=== PATIENT | female | born 1960 | race Caucasian/White ===

== ENCOUNTER → 2019-04-11 | Outpatient (REF) | payer BC, OTHER ==
[2019-04-13 14:10] LABS: HPV HYBRID CAPTURE II Negative (Negative)
== END ==
LOC: M LAB REF 18:50
PROVIDERS: ATTEND Advanced Practice Midwife
DX: Z12.4 Encounter for screening for malignant neoplasm of cervix (principal); N88.8 Other specified noninflammatory disorders of cervix uteri
CPT/HCPCS: 87624; G0123

== ENCOUNTER → 2019-05-12 | Outpatient (CLI) | payer OTHER ==
--- NOTE | 2019-05-17 07:45 | SLEEPHOME ---
DATE OF PROCEDURE: 05/12/2019 ORDERED BY: Dr. Avtar Miles Diagnostic home sleep testing was performed due to concern for the obstructive sleep apnea syndrome. For testing, a nocturnal T3 respiratory monitoring device was used. Continuous record was made of pulse, oxygen saturation, airflow, chest and abdominal strain and body position. 10 hours and 59 minutes of data were reviewed. There were 5 hours and 41 minutes marked as time in bed. During the interval marked time in bed, there were 29 respiratory events identified of 10 seconds in duration or greater for a respiratory event index of 5.1. The events were primarily obstructive. Baseline pulse rate 63 beats per minute, pulse rate ranged 45-85. Baseline saturation 96%. Saturations fell to 91%. Testing was performed in both the supine and nonsupine positions. Respiratory events were more frequent in the supine posture. IMPRESSION: Abnormal home sleep testing with repetitive respiratory events and oxygen desaturations to 91% with a respiratory event index of 5.1 is consistent with the obstructive sleep apnea syndrome. RECOMMENDATIONS: Given the positional nature of the respiratory events identified, sleep position retraining for avoidance of the supine posture may be sufficient. Should the patient's symptoms persist, referral for formal sleep evaluation should be considered.
== END ==
LOC: M SLEEP HO 11:51
PROVIDERS: ATTEND Internal Medicine
DX: R29.818 Other symptoms and signs involving the nervous system (principal)

== ENCOUNTER → 2020-03-30 | Outpatient (REF) | payer OTHER ==
[2020-03-30 15:26] LABS: HEMATOCRIT 40.5 % (36.0-47.0); HEMOGLOBIN 13.1 g/dl (12.0-15.5); MEAN CORPUSCULAR HEMOGLOBIN 28.1 pg (27.0-33.0); MEAN CORPUSCULAR HGB CONC 32.3 g/dl (32.0-36.5); MEAN CORPUSCULAR VOLUME 86.7 fl (80.0-96.0); PLATELET COUNT, AUTOMATED 275 10^3/uL (150-450); RED BLOOD COUNT 4.67 10^6/uL (4.00-5.40)
[2020-03-30 16:04] LABS: ALBUMIN 4.2 GM/DL (3.2-5.2); ALT/SGPT 35 U/L (12-78); BILIRUBIN,TOTAL 0.7 MG/DL (0.2-1.0); BLOOD UREA NITROGEN 11 MG/DL (7-18); CALCIUM LEVEL 9.2 MG/DL (8.5-10.1); CARBON DIOXIDE LEVEL 28 MEQ/L (21-32); CHLORIDE LEVEL 104 MEQ/L (98-107); CHOLESTEROL LEVEL 210 MG/DL (<200); CREATININE FOR GFR 0.77 MG/DL (0.55-1.30); GLOMERULAR FILTRATION RATE > 60.0 (>51); GLUCOSE, FASTING 85 MG/DL (70-100); HDL CHOLESTEROL 85 MG/DL (>40); LDL CHOLESTEROL 110 MG/DL (<100); NON-HDL-C 125 MG/DL; POTASSIUM SERUM 4.1 MEQ/L (3.5-5.1); SODIUM LEVEL 138 MEQ/L (136-145); THYROID STIMULATING HORMONE 0.804 uIU/ML (0.358-3.740); TOTAL PROTEIN 7.7 GM/DL (6.4-8.2); TRIGLYCERIDES LEVEL 73 MG/DL (<150)
== END ==
LOC: M PLALAB 13:41
PROVIDERS: ATTEND Internal Medicine
DX: Z00.00 Encounter for general adult medical examination without abnormal findings (principal); J30.9 Allergic rhinitis, unspecified; I10 Essential (primary) hypertension; E78.00 Pure hypercholesterolemia, unspecified

== ENCOUNTER → 2021-09-28 | Outpatient (CLI) | payer OTHER ==
[~2021-09-28] MED LIST: LISI20TA33
== END ==
LOC: M LABSMTC 09:14
PROVIDERS: ATTEND Anesthesiology
DX: Z01.812 Encounter for preprocedural laboratory examination (principal); Z20.822 Contact with and (suspected) exposure to COVID-19

== ENCOUNTER 2021-10-02 08:12 | Day surgery (SDC) | payer OTHER ==
[~2021-10-02] VITALS: Ht 162.6 cm; Wt 72.9 kg
[~2021-10-02 08:12] MED LIST changes: +NS 1,000 ML IV ONE
--- OUTSIDE RECORDS SUMMARY | 2021-10-02 08:23 | CCD | Continuity of Care Document ---
Author Author Esthela JALLOH M.D. Organization Unknown Address [address] [place] [id number] Phone [phone] Care Team Providers Care Electrical Logging Engineer Name Role Phone Avtar Miles M.D. AUTM [phone] Problems Active Problems Provider Date Screening for malignant neoplasm of colon Nadeem carmona M.D. Onset: 08/13/2021 Social History Type Date Description Comments Sex Unknown ETOH Use Occasionally Tobacco Use Start: Unknown Patient has never smoked Allergies and adverse reactions Description No Known Drug Allergies Medications Active Medications SIG Qnty Indications Ordering Provide r Date Sutab [id number] Tablets as directed 1box Nadeem Jalloh M.D. 08/13/2021 Lisinopril 10mg Tablets Take 1 Tablet By Mouth Once A Day Unknown Immunizations Description No Information Available Vital Signs Date Vital Result Comment 08/13/2021 3:11pm Height 64 inches 5'4" Weight 160.00 lb BP Systolic 119 mmHg BP Diastolic 84 mmHg Heart Rate 65 /min BMI (Body Mass Index) 27.5 kg/m2 Weight 72.576 kg Body Temperature 97.3 F Results Description No Information Available Procedures Date Code Description Status 08/13/2021 03385 Office/Outpatient New Low MDM 30 -44 Minutes Completed Medical Devices Description No Information Available Encounters Type Date Location Provider Dx Diagnosis Office Visit 08/13/2021 2:45p Main Office Nadeem Jalloh M.D. Z 12.11 Encounter for screening for malignant neoplasm of colon Assessments Date Code Description Provider 08/13/2021 Z12.11 Screening for malignant neoplasm of colon Nadeem Jalloh M.D. Plan of Treatment Future Appointment(s):* 10/02/2021 12:45 pm - Nadeem Jalloh M.D. at Main Office 08/13/2021 - Nadeem Jalloh M.D.* Z12.11 Screening for malignant neoplasm of colon* Comments:* 60 yo wf who presents for a screening colonoscopy. Last scope was in 2010. No c/o abdominal pain, weight loss, change in bowel habits, or rectal bleeding. No family h/o colon cancer. No h/o chest pain, or sob. Plan:1.Schedule patient for a colonoscopy.2.Informed consent given to the patient.3.Pt. advised to stop aspirin,plavix, and anticoagulants at least 3 to 7 days prior to the procedure. Functional Status Description No Information Available Mental Status Description No Information Available Referrals Description No Information Available
--- OUTSIDE RECORDS SUMMARY | 2021-10-02 08:23 | CCD ---
Author Author [facility] Organization [facility] Address Unknown Phone Unavailable Care Team Providers Care Blintze Roller Name Role Phone Traci Jalloh MD Unavailable Unavailable Traci Jalloh MD Unavailable Unavailable Traci Jalloh MD Unavailable Unavailable Traci Jalloh MD Unavailable Unavailable Traci Jalloh MD Unavailable Unavailable Traci Jalloh MD Unavailable Unavailable Traci Jalloh MD Unavailable Unavailable Traci Jalloh MD Unavailable Unavailable Traci Jalloh MD Unavailable Unavailable Traci Jalloh MD Unavailable Unavailable Traci Jalloh MD Unavailable Unavailable Traci Jalloh MD Unavailable Unavailable Traci Jalloh MD Unavailable Unavailable Traci Jalloh MD Unavailable Unavailable Traci Jalloh MD Unavailable Unavailable Traci Jalloh MD Unavailable Unavailable Traci Jalloh MD Unavailable Unavailable Traci Jalloh MD Unavailable Unavailable Traci Jalloh MD Unavailable Unavailable Traci Jalloh MD Unavailable Unavailable Traci Jalloh MD Unavailable Unavailable Traci Jalloh MD Unavailable Unavailable Traci Jalloh MD Unavailable Unavailable Traci Jalloh MD Unavailable Unavailable Traci Jalloh MD Unavailable Unavailable Traci Jalloh MD Unavailable Unavailable Traci Jalloh MD Unavailable Unavailable Traci Jalloh MD Unavailable Unavailable Traci Jalloh MD Unavailable Unavailable Traci Jalloh MD Unavailable Unavailable Traci Jalloh MD Unavailable Unavailable Traci Jalloh MD Unavailable Unavailable Traci Jalloh MD Unavailable Unavailable Traci Jalloh MD Unavailable Unavailable Traci Jalloh MD Unavailable Unavailable Traci Jalloh MD Unavailable Unavailable Traci Jalloh MD Unavailable Unavailable Traci Jalloh MD Unavailable Unavailable Traci Jalloh MD Unavailable Unavailable Traci Jalloh MD Unavailable Unavailable Traci Jalloh MD Unavailable Unavailable Traci Jalloh MD Unavailable Unavailable Traci Jalloh MD Unavailable Unavailable Traci Jalloh MD Unavailable Unavailable Traci Jalloh MD Unavailable Unavailable Traci Jalloh MD Unavailable Unavailable Traci Jalloh MD Unavailable Unavailable Traci Jalloh MD Unavailable Unavailable Traci Jalloh MD Unavailable Unavailable Traci Jalloh MD Unavailable Unavailable Avtar Miles MD Unavailable Unavailable Avtar Miles MD Unavailable Unavailable Avtar Miles MD Unavailable Unavailable Avtar Miles MD Unavailable Unavailable Avtar Miles MD Unavailable Unavailable Avtar Miles MD Unavailable Unavailable Avtar Miles MD Unavailable Unavailable Avtar Miles MD Unavailable Unavailable Avtar Miles MD Unavailable Unavailable Avtar Miles MD Unavailable Unavailable Avtar Miles MD Unavailable Unavailable Avtar Miles MD Unavailable Unavailable Avtar Miles MD Unavailable Unavailable Avtar Miles MD Unavailable Unavailable Avtar Miles MD Unavailable Unavailable Avtar Miles MD Unavailable Unavailable Avtar Miles MD Unavailable Unavailable Avtar Miles MD Unavailable Unavailable Avtar Miles MD Unavailable Unavailable Avtar Miles MD Unavailable Unavailable Avtar Miles MD Unavailable Unavailable Avtar Miles MD Unavailable Unavailable Avtar Miles MD Unavailable Unavailable Avtar Miles MD Unavailable Unavailable Avtar Miles MD Unavailable Unavailable Avtar Miles MD Unavailable Unavailable Avtar Miles MD Unavailable Unavailable Avtar Miles MD Unavailable Unavailable Avtar Miles MD Unavailable Unavailable Avtar Miles MD Unavailable Unavailable Avtar Miles MD Unavailable Unavailable Avtar Miles MD Unavailable Unavailable Avtar Miles MD Unavailable Unavailable Avtar Miles MD Unavailable Unavailable Avtar Miles MD Unavailable Unavailable Avtar Miles MD Unavailable Unavailable Avtar Miles MD Unavailable Unavailable Avtar Miles MD Unavailable Unavailable Avtar Miles MD Unavailable Unavailable Avtar Miles MD Unavailable Unavailable Avtar Miles MD Unavailable Unavailable Avtar Miles MD Unavailable Unavailable Avtar Miles MD Unavailable Unavailable Avtar Miles MD Unavailable Unavailable Avtar Miles MD Unavailable Unavailable GingerAvtar brian MD Unavailable Unavailable GingerAvtar brian MD Unavailable Unavailable GingerAvtar brian MD Unavailable Unavailable GingerAvtar brian MD Unavailable Unavailable GingerAvtar brian MD Unavailable Unavailable GingerAvtar brian MD Unavailable Unavailable GingerAvtar brian MD Unavailable Unavailable GingerAvtar brian MD Unavailable Unavailable GingerAvtar brian MD Unavailable Unavailable GingerAvtar brian MD Unavailable Unavailable GingerAvtar brian MD Unavailable Unavailable GingerAvtar brian MD Unavailable Unavailable GingerAvtar brian MD Unavailable Unavailable GingerAvtar brian MD Unavailable Unavailable GingerAvtar brian MD Unavailable Unavailable GingerAvtar brian MD Unavailable Unavailable GingerAvtar brian MD Unavailable Unavailable GingerAvtar brian MD Unavailable Unavailable GingerAvtar brian MD Unavailable Unavailable GingerAvtar brian MD Unavailable Unavailable GingerAvtar brian MD Unavailable Unavailable GingerAvtar brian MD Unavailable Unavailable Avtar Miles MD Unavailable Unavailable Avtar Miles MD Unavailable Unavailable Avtar Miles MD Unavailable Unavailable Avtar Miles MD Unavailable Unavailable Avtar Miles MD Unavailable Unavailable Avtar Miles MD Unavailable Unavailable Avtar Miles MD Unavailable Unavailable Avtar Miles MD Unavailable Unavailable Avtar Miles MD Unavailable Unavailable Avtar Miles MD Unavailable Unavailable Avtar Miles MD Unavailable Unavailable Avtar Miles MD Unavailable Unavailable Hegard, Melissa PRECISION JIG GRINDER Unavailable Unavailable Hegard, Melissa PRECISION JIG GRINDER Unavailable Unavailable Hegard, Melissa PRECISION JIG GRINDER Unavailable Unavailable Hegard, Melissa PRECISION JIG GRINDER Unavailable Unavailable Hegard, Melissa PRECISION JIG GRINDER Unavailable Unavailable Hegard, Melissa PRECISION JIG GRINDER Unavailable Unavailable Hegard, Melissa PRECISION JIG GRINDER Unavailable Unavailable Hegard, Melissa PRECISION JIG GRINDER Unavailable Unavailable Hegard, Melissa PRECISION JIG GRINDER Unavailable Unavailable Hegard, Melissa PRECISION JIG GRINDER Unavailable Unavailable Hegard, Melissa PRECISION JIG GRINDER Unavailable Unavailable Hegard, Melissa PRECISION JIG GRINDER Unavailable Unavailable Hegard, Melissa PRECISION JIG GRINDER Unavailable Unavailable Hegard, Melissa PRECISION JIG GRINDER Unavailable Unavailable Hegard, Melissa PRECISION JIG GRINDER Unavailable Unavailable Hegard, Melissa PRECISION JIG GRINDER Unavailable Unavailable Hegard, Melissa PRECISION JIG GRINDER Unavailable Unavailable Re-disclosure Warning The records that you are about to access may contain information from federally-assisted alcohol or drug abuse programs. If such information is present, then the following federally mandated warning applies: This information has been disclosed to you from records protected by federal confidentiality rules (42 CFR part 2). The federal rules prohibit you from making any further disclosure of this information unless further disclosure is expressly permitted by the written consent of the person to whom it pertains or as otherwise permitted by 42 CFR part 2. A general authorization for the release of medical or other information is NOT sufficient for this purpose. The Federal rules restrict any use of the information to criminally investigate or prosecute any alcohol or drug abuse patient.The records that you are about to access may contain highly sensitive health information, the redisclosure of which is protected by Article 27-F of the [facility] Public Health law. If you continue you may have access to information: Regarding HIV / AIDS; Provided by facilities licensed or operated by the [facility] Office of Mental Health; or Provided by the [facility] Office for People With Developmental Disabilities. If such information is present, then the following [facility] mandated warning applies: This information has been disclosed to you from confidential records which are protected by state law. State law prohibits you from making any further disclosure of this information without the specific written consent of the person to whom it pertains, or as otherwise permitted by law. Any unauthorized further disclosure in violation of state law may result in a fine or alf sentence or both. A general authorization for the release of medical or other information is NOT sufficient authorization for further disc losure. Family History Family Member Name Family Member Gender Family Member Status Date o f Status Description Data Source(s) Unknown Unknown Problem MEDENT ([facility], ) Encounters Encounter Providers Location Date Indications Data Source(s ) Outpatient Attender: Melissa Patel [facility] Main Office 1 12:45:00 PM EDT MEDENT ([facility]) Outpatient Attender: Nadeem Jalloh MD Main Office 08/13/2021 02:45:00 PM EDT [facility] ([facility]) [place] [address] [address] 04/02/2021 12:00:00 AM EDT eCW1 (Count includes the [facility]) Outpatient Attender: Avtar HERNANDEZeferrer: Avtar Miles MD EMERGENCY ROOM-LABOTHPROV 03/29/2021 09:29:00 AM EDT - 03/29/2021 09:29:00 AM EDT [facility] Unknown [address] [address] 12/19/2020 12:00:00 AM EST eCW1 (Count includes the [facility]) Outpatient Attender: Avtar Miles MDReferrer: Avtar Miles MD 09/06/2020 02:00:00 PM [facility] Outpatient Attender: Avtar Miles MD 019 01:14:00 PM EDT - 04/06/2019 01:14:00 PM [facility] Outpatient Attender: Avtar Miles MD 09/29/2017 08:00:00 AM [facility] Outpatient Attender: Avtar Miles MD 09/09/2016 11:26:00 AM [facility] Outpatient Attender: Avtar Miles MD 02/07/2015 01:15:00 PM [facility] Outpatient Attender: Avtar Miles MD 01/18/2014 12:50:00 PM [facility] Immunizations Vaccine Date Status Description Data Source(s) COVID-19 VACCINE Pfizer 09/24/2021 12:00:00 AM EDT completed [facility] Vaccine Series Complete: YESThis Data wa s Submitted to [facility] Via [facility]. COVID-19 VACC, MRNA(PFIZER)/PF 09/24/2021 12:00:00 AM EDT completed [facility] Tdap 04/02/2021 02:52:00 PM EDT completed e [facility] COVID-19 dose #2 given elsewhere Unspecified 01/25/2021 06:2 9:00 AM EST completed eCW1 (Count includes the [facility]) COVID-19 VACCINE Pfizer 01/25/2021 12:00:00 AM EST completed [facility] Vaccine Series Complete: YESThis Data wa s Submitted to [facility]. COVID-19 dose #1 given elsewhere Unspecified 01/04/2021 06:2 8:00 AM EST completed eCW1 (Count includes the [facility]) COVID-19 VACCINE Pfizer 01/04/2021 12:00:00 AM EST completed [facility] Vaccine Series Complete: NOThis Data was Submitted to [facility]. IIV3. This is one of two codes replacing CVX 15, which is being retired. 10/04/2020 03:08:00 PM EST completed eCW1 ([facility]) IIV3. This is one of two codes replacing CVX 15, which is being retired. 10/04/2020 03:08:00 PM EST completed eCW1 ([facility]) INFLUENZA VIRUS VACCINE QUADRIVALENT 2019- (36 MOS U P)/PF 10/04/2020 12:00:00 AM EST completed [facility] Medications Medication Brand Name Start Date Product Form Dose Route Admi nistrative Instructions Pharmacy Instructions Status Indications Reaction Description Data Source(s) 1 % 09/06/2021 12:00:00 AM EDT cream 30 APPLY SPARINGLY TO FACE EVERY MORNING APPLY SPARINGLY TO FACE EVERY MORNING SOLD: 09/13/2021 [facility] 15 % 09/06/2021 12:00:00 AM EDT gel 50 APPLY TO FACE TWO TIMES A DAY APPLY TO FACE TWO TIMES A DAY SOLD: 09/13/2021 [facility] azelaic acid 0.15 MG/MG Topical Gel Azelaic Acid 09/05/2021 12:00:00 AM EDT active MED[facility] ([facility]) Rhofade Rhofade 09/05/2021 12:00:00 AM EDT active [facility] ([facility]) 1.479-0.188- 0.225 gram 08/14/2021 12:00:00 AM EDT tablet 24 USE DIRECTED USE DIRECTED SOLD: 08/21/2021 [facility] Sutab Sutab 08/13/2021 12:00:00 AM EDT active MED[facility] ([facility]) 20 mg 04/03/2021 12:00:00 AM EDT tablet 30 TAKE ONE TABLET BY MOUTH EVERY DAY TAKE ONE TABLET BY MOUTH EVERY DAY SOLD: 09/29/2021 [facility] 10 mg 04/03/2021 12:00:00 AM EDT tablet 6 TAKE ONE TABLET BY MOUTH EVERY 2 HOURS NEEDED FOR MIGRAINES MAXIMUM DAILY DOSE = 3 TAKE ONE TABLET BY MOUTH EVERY 2 HOURS NEEDED FOR MIGRAINES MAXIMUM DAILY DOSE = 3 SOLD: 04/11/2021 [facility] Lisinopril 20 MG Oral Tablet LISINOPRIL 04/03/2021 12:00:00 AM EDT tab let 30 TAKE ONE TABLET BY MOUTH EVERY DAY TAKE ONE TABLET BY MOUTH EVERY DAY SOLD: 04/11/2021 [facility] 20 mg 04/03/2021 12:00:00 AM EDT tablet 30 TAKE ONE TABLET BY MOUTH EVERY DAY TAKE ONE TABLET BY MOUTH EVERY DAY SOLD: 07/08/2021 [facility] 5 % 09/06/2020 12:00:00 AM EDT cream 40 APPLY TO FOREHEAD, RIGHT HAND/ARM AND CHEST SPARINGLY TWO TIMES A DAY FOR 2 WEEKS APPLY TO FOREHEAD, RIGHT HAND/ARM AND CHEST SPARINGLY TWO TIMES A DAY FOR 2 WEEKS SOLD: 09/07/2020 [facility] 15 % 09/06/2020 12:00:00 AM EDT gel 50 APPLY TO FACE TWO TIMES A DAY APPLY TO FACE TWO TIMES A DAY SOLD: 09/07/2020 [facility] 10 mg 04/03/2020 12:00:00 AM EDT tablet 30 TAKE 1 TABLET BY MOUTH ONCE A DAY TAKE 1 TABLET BY MOUTH ONCE A DAY SOLD: 10/26/2020 [facility] 10 mg 04/03/2020 12:00:00 AM EDT tablet 30 TAKE 1 TABLET BY MOUTH ONCE A DAY TAKE 1 TABLET BY MOUTH ONCE A DAY SOLD: 02/09/2021 [facility] 10 mg 04/03/2020 12:00:00 AM EDT tablet 30 TAKE 1 TABLET BY MOUTH ONCE A DAY TAKE 1 TABLET BY MOUTH ONCE A DAY SOLD: 08/11/2020 [facility] Insurance Providers Payer name Policy type / Coverage type Policy ID Covered republican ID Covered republican's relationship to bethea Policy Bethea Plan Information [place] P[place] 302/307 [id number] SP [id number] [facility] [id number] S [id number] [facility] [id number] S [id number] [facility] [id number] S [id number] [employer] [place] [id number] S [id number] [facility] [id number] S [id number] [facility] [id number] SP [id number] DO Not Use, Use #4 Medigap Part B [id number] Self [id number] [facility] Health Maintenance Organization (O) [id number] Self [id number] ANSI-Commercial [id number] [facility] O [id number] S [id number] [facility] [id number] SP [id number] [employer] [place] PPO 302/307 [id number] SP [id number] [facility] [id number] SP [id number] [facility] [id number] SP [id number] [facility] [id number] S [id number] Problems, Conditions, and Diagnoses Code Display Name Description Problem Type Effective Dates Data Source(s) J30.9 Allergic rhinitis, unspecified ALLERGIC RHINITIS, UNSP ECIFIED Diagnosis 03/29/2021 09:29:00 AM [facility] E78.00 PURE HYPERCHOLESTEROLEMIA, UNSPECIFIED P URE HYPERCHOLESTEROLEMIA, UNSPECIFIED Diagnosis 03/29/2021 09:29:00 AM [facility] Essential (primary) hypertension ESSENTIAL (PRIMARY) H YPERTENSION Diagnosis 03/29/2021 09:29:00 AM [facility] Z12.39 Encounter for other screening for malign ant neoplasm of breast ENCOUNTER FOR OTH SCREENING FOR MALIGNAN Diagnosis 09/06/2020 02:00:00 PM [facility] Z12.31 Encounter for screening mammogram for ma lignant neoplasm of breast ENCNTR SCREEN MAMMOGRAM FOR MALIGNANT NEOPLASM OF BREAST Diagnosis 06/2020 02:00:00 PM [facility] [id number] Screening for malignant neoplasm of colo n Screening for malignant neoplasm of colon Problem 08/13/2021 12:00:00 AM EDT [facility] Surgeries/Procedures Procedure Description Date Indications Data Source(s) Shave Biopsy Of Skin, Single Lesion 09/05/2021 12:00:0 0 AM EDT MED[facility] ([facility]) Each Separate/Additional Lesion 09/05/2021 12:00:00 AM EDT [facility]) OFFICE OUTPATIENT VISIT 25 MINUTES 09/05/2021 12:00:00 AM EDT [facility] ([facility]) OFFICE OUTPATIENT NEW 30 MINUTES 08/13/2021 12:00:00 A M EDT [facility] ([facility]) TDAP VACCINE 7/> YR IM 04/02/2021 12:00:00 AM EDT [facility] Results ID Date Data Source [id number] 09/28/2021 09:10:00 AM EDT [facility] Name Value Range Interpretation Code Description Data Julee rce(s) Supporting Document(s) SARS-CoV-2 (COVID-19) RNA [Presence] in Respiratory specimen by ANAND with probe detection Not Detected [facility] This lab was ordered by [facility] and reported by [employer]. ID Date Data Source [id number] 09/05/2021 01:26:00 PM EDT [facility]ENT ([facility]) Name Value Range Interpretation Code Description Data Julee rce(s) Supporting Document(s) Laboratory test finding (navigational concept) Laboratory test result MEDENT ([facility]) A. ED&C x 3 B. ED&C x 3 Laboratory test finding (navigational concept) Laboratory test result [facility] ([facility]) A. ED&C x 3 B. ED&C x 3 ID Date Data Source [id number] 03/29/2021 10:30:00 AM EDT [facility] FA[facility] [phone] Name Value Range Interpretation Code Description Data Julee rce(s) Supporting Document(s) CHOLESTEROL 241 mg/dL 0-200 [facility] TRIGLYCERIDES 45 mg/dL 0-150 [facility] LDL CHOLESTEROL 137 mg/dL 0-100 [facility] HDL CHOLESTEROL 95 mg/dL 40-60 [facility] CHOL/HDL RATIO 2.5 0.0-5.0 [facility] ID Date Data Source [id number] 03/29/2021 10:30:00 AM EDT [facility] FA[facility] [phone] Name Value Range Interpretation Code Description Data Julee rce(s) Supporting Document(s) GLUCOSE 98 mg/dL 74-106 [facility] BLOOD UREA NITROGEN 13 mg/dL 7-18 [facility] ital CREATININE 0.91 mg/dL 0.6-1.0 [facility] SODIUM 139 mmol/L 136-145 [facility] POTASSIUM 5.0 mmol/L 3.5-5.1 [facility] CHLORIDE 100 mmol/L 98-107 [facility] CO2 28 mmol/L 21-32 [facility] CALCIUM 9.4 mg/dL 8.5-10.1 [facility] ANION GAP 11.0 mmol/L 5-12 [facility] GLOMERULAR FILTRATION RATE 63 mL/min [facility] GFR IS CALCULATED IN mL/min/1.73m2 LITTLE L FUNCTION: >90MILDLY DECREASED: 60-89MILDY TO MODERATELY DECREASED: 45-59 MODERATELY TO SEVERELY DECREASED: 30-44SEVERELY DECREASED: 15-29RENAL FAILURE: <15 AST 22 U/L 15-37 [facility] ALT 33 U/L 12-78 [facility] ALKALINE PHOSPHATASE 139 U/L 46-116 [facility] TOTAL BILIRUBIN 0.6 mg/dL 0.2-1.0 [facility] TOTAL PROTEIN 7.7 g/dl 6.4-8.2 [facility] ALBUMIN 4.3 gm/dL 3.4-5.0 [facility] ID Date Data Source [id number] 03/29/2021 09:48:00 AM EDT [facility] FAX [phone] Name Value Range Interpretation Code Description Data Julee rce(s) Supporting Document(s) WHITE BLOOD COUNT 6.3 K/mm3 4.0-10.0 [facility] al RED BLOOD COUNT 4.97 M/mm3 4.00-5.50 [facility] HEMOGLOBIN 13.7 gm/dL 12.0-16.0 [facility] HEMATOCRIT 41.4 % 36.0-48.8 [facility] MEAN CELL VOLUME 83.3 fl 80-96 [facility] MEAN CORPUSCULAR HEMOGLOBIN 27.6 pg 27.0-31.0 [facility] MEAN CORPUSCULAR HGB CONC 33.1 g/dl 32.0-36.0 [facility] RED CELL DISTRIBUTION WIDTH 13.2 % 10.0-14.5 [facility] PLATELET COUNT 277 K/mm3 172-450 [facility] ID Date Data Source [id number] 09/06/2020 01:57:00 PM EDT [facility] DATE OF EXAMINATION: 09/06/2020 12:30 EDT MAMMO SCREEN BILAT WITH CAD HISTORY: Screening Based on the personal and family history information your patient supplied atthe time of imaging, her lifetime risk of breast cancer estimated date by theTyrer-Cuzick model is 10.4%. If anything changes in the personal and/or familyhistory this percentage could increase or decrease. Currently, NCCN and ACSrecommended adjunctive breast MRI screening starting at age 30 for women with a> 20-25% lifetime risk of developing breast cancer. Comparison is made to prior study dated 04/06/2019. 2-D bilateral digital mammogram in the CC and MLO planes were performed withsupplemental 3-D tomosynthesis of both breasts. The images were analyzed through the latest version of the [employer] computer aided diagnosis system. The patient states that her last clinical breast examination was September 2019. Craniocaudal and oblique lateral views of the breasts were obtained. Thebreasts are almost entirely fatty. There is no dominant mass, suspiciousclustered calcification, or architectural distortion. IMPRESSION: No mammographic evidence of malignancy. BIRAD 2 - Benign Findings, Routine Yearly Mammographic Follow-up recommended. 10-15% of cancers are not identified by mammography. This usually occurs whenthe mass is of the same radiographic density as the surrounding breast tissue,emphasizing the importance of breast self examination (BSE) and physicalexamination. A normal mammogram should not delay biopsy if a suspicious mass orabnormal findings are present upon physical examination. Electronically signed in [id number] by: Kenny Werner M.D. 09/06/2020 13:51 EDT Name Value Range Interpretation Code Description Data Julee rce(s) Supporting Document(s) Procedure Social History No Information Vital Signs ID Date Data Source UNK Name Value Range Interpretation Code Description Data Source(s) Systolic blood pressure 143 mm[Hg] 143 mm[Hg] M EDENT ([facility]) Diastolic blood pressure 70 mm[Hg] 70 mm[Hg] MEDHUGH ([facility]) Body weight 160.00 [lb_av] 160.00 [lb_av] LORIEEN T ([facility]) Body height 64 [in_i] 64 [in_i] JAYDA ([facility]) 5'4" Body mass index (BMI) [Ratio] 27.5 kg/m2 27.5 k g/m2 MEDHUGH ([facility]) Body height 64 [in_i] 64 [in_i] [facility] 5'4" Body weight 160.00 [lb_av] 160.00 [lb_av] MEDEN T ([facility]) Systolic blood pressure 119 mm[Hg] 119 mm[Hg] M EDENT ([facility]) Diastolic blood pressure 84 mm[Hg] 84 mm[Hg] [facility] ([facility]) Heart rate 65 /min 65 /min [facility] Body mass index (BMI) [Ratio] 27.5 kg/m2 27.5 k g/m2 [facility] ([facility]) Body weight 72.576 kg 72.576 kg [facility]) Body temperature 97.3 [degF] 97.3 [degF] MEDENT ([facility]) Body weight 154.8 [lb_av] 154.8 [lb_av] eCW1 ([facility]) Body height 64 [in_i] 64 [in_i] eCW1 ([facility]) Body mass index (BMI) [Ratio] 26.57 kg/m2 26.57 kg/m2 [facility]CW1 [facility] Heart rate 91 /min 91 /min eCW1 ([facility]) Respiratory rate 18 /min 18 /min eCW1 ([facility]) Body temperature 98.6 [degF] 98.6 [degF] eCW1 [facility] Systolic blood pressure 134 mm[Hg] 134 mm[Hg] e CW1 ([facility]) Diastolic blood pressure 82 mm[Hg] 82 mm[Hg] eCW1 [facility] Heart rate 63 /min 63 /min [facility] ([facility]) Body weight 160.00 [lb_av] 160.00 [lb_av] MEDEN T ([facility]) Respiratory rate 16 /min 16 /min [facility] ( [facility])
--- OUTSIDE RECORDS SUMMARY | 2021-10-02 08:23 | CCD | Continuity of Care Document ---
Author Author sEthela PEDRO-C Organization Unknown Address [address] [place] [address] Phone [phone] Care Team Providers Care Aerospace Engineer Officer Armament Name Role Phone Avtar Miles MD [facility] [phone] Problems Description No Information Available Social History Type Date Description Comments Sex Unknown ETOH Use Social Drinker Tobacco Use Start: Unknown End: Unknown Patient is a former smoker Quit 1983 Sun Exposure minimum amount of sun exposure Sun Exposure Tanning bed - Has used in past. No longer using. Sun Exposure Has experienced blistering from sunburns Sun Exposure Uses 15-30 SPF Allergies and adverse reactions Active Allergies Criticality Reaction | Severity Comments Date NKDA Unable to assess criticality 09/11/2008 Seasonal Unable to assess criticality 08/27/2017 Medications Active Medications SIG Qnty Indications Ordering Provide r Date Azelaic Acid 15% Gel apply to face twice a day 50gm RAMON Esquivel 2020 Rhofade 1% Cream apply sparingly to face once daily in the morning 30gm L71.8 COLE Esquivel 09/05/2021 Lisinopril Unknown Immunizations Description No Information Available Vital Signs Date Vital Result Comment 09/05/2021 12:57pm BP Systolic 143 mmHg BP Diastolic 70 mmHg Weight 160.00 lb Height 64 inches 5'4" BMI (Body Mass Index) 27.5 kg/m2 10/01/2020 12:29pm Heart Rate 63 /min Weight 160.00 lb Respiratory Rate 16 /min Results Test Acquired Date Facility Test Result H/L Range Note L Shoulder #1 (1 Of 2) 09/05/2021 [facility] Icd9 Code ICD9 Code: C44.6 <SEE NOTE> 1, 2 PDFReport SEE IMAGE 1 A. ED&C x 3 B. ED&C x 3 2 ICD9 Code: C44.619 Protocol: shave Clinical Text: BCC VS AK Final Diagnosis: BASAL CELL CARCINOMA, SUPERFICIAL TYPE, EXTENDING TO THE BASE AND A LATERAL MARGIN. Gross Text: The specimen grossly was irregular in shape and measured 4 x 3 mm. on the surface and 1 mm. deep. It was divided into 2 sections on the long axis. All of the tissue was submitted for processing. Microscopic Description: Islands of basaloid cells are attached to the epidermal undersurface, and the lesion extends to a lateral margin. CPT: 15296*2 Procedures Date Code Description Status 09/05/2021 33927 Office/Outpatient Established Mo d MDM 30-39 Min Completed 09/05/2021 08314 Each Separate/Additional Lesion Completed 09/05/2021 79325 Shave Biopsy Of Skin, Single Les ion Completed Medical Devices Description No Information Available Encounters Type Date Location Provider Dx Diagnosis Office Visit 09/05/2021 12:45p Main Office RAMON Esquivel D48.5 Neoplasm of uncertain behavior of skin D22.5 Melanocytic nevi of trunk D22.71 Melanocytic nevi of right lo wer limb, including hip D22.72 Melanocytic nevi of left low er limb, including hip D22.4 Melanocytic nevi of scalp an d neck L71.8 Other rosacea L81.6 Other disorders of diminishe d melanin formation L82.1 Other seborrheic keratosis L81.4 Other melanin hyperpigmentat ion Z85.828 Personal history of other ma lignant neoplasm of skin Z08 Encntr for follow-up exam af ter trtmt for malignant neoplasm Assessments Date Code Description Provider 09/05/2021 D48.5 Neoplasm of uncertain behavior o f skin Kanika Bryan, F.N.P. 09/05/2021 D48.5 Neoplasm of uncertain behavior o f skin RAMON Esquivel 09/05/2021 D22.5 Melanocytic nevi of trunk Johnny Bryan, F.N.P. 09/05/2021 D22.5 Melanocytic nevi of trunk RAMON Barger 09/05/2021 D22.71 Melanocytic nevi of right lower limb, including hip RAMON Esquivel 09/05/2021 D22.72 Melanocytic nevi of left lower l imb, including hip RAMON Esquivle 09/05/2021 D22.4 Melanocytic nevi of scalp and ne ck RAMON Esquivel 09/05/2021 L71.8 Other rosacea Kanika Lewis n, F.N.P. 09/05/2021 L71.8 Other rosacea RAMON [address] 09/05/2021 L81.6 Other disorders of diminished me lanin formation RAMON Esquivel 09/05/2021 L82.1 Other seborrheic keratosis RAMON Juan 09/05/2021 L81.4 Other melanin hyperpigmentation RAMON Esquivel 09/05/2021 Z85.828 Personal history of other malign ant neoplasm of skin Kanika Bryan, F.N.P. 09/05/2021 Z85.828 Personal history of other malign ant neoplasm of skin RAMON Esquivel 09/05/2021 Z08 Encounter for follow -up examination after completed treatment for malignant neoplasm Kanika Bryan, F.N.P. 09/05/2021 Z08 Encounter for follow-up examinat ion after completed treatmen RAMON Esquivel Plan of Treatment Future Appointment(s):* 10/09/2021 2:30 pm - RAMON Esquivel at Main Office * 09/08/2022 12:30 pm - RAMON Esquivel at Main Office * 03/06/2022 12:30 pm - RAMON Esquivel at Main Office 09/05/2021 - RAMON Esquivel* D48.5 Neoplasm of uncertain behavior of skin* Comments:* Shave biopsy today, L shoulder #1 and #2 - BCC vs AK.Wound care instructions given. Will contact with pathology when available. * D22.5 Melanocytic nevi of trunk* Comments:* Nevi on trunk appear healthy. Monitor for changes. Sun protection and sunscreen use discussed. Literature given on monthly self skin evaluations. Should any moles change in shape or color, itch, bleed or burn, pt will contact office for evaluation sooner than their interval appointment. * D22.71 Melanocytic nevi of right lower limb, including hip* Comments:* Nevus located on R leg appears healthy. Monitor for changes. * D22.72 Melanocytic nevi of left lower limb, including hip* Comments:* Nevi on L leg appear healthy. Monitor for changes. * D22.4 Melanocytic nevi of scalp and neck* Comments:* Nevus on neck appear healthy. Monitor for changes * L71.8 Other rosacea* New Medication:* Rhofade 1 % - apply sparingly to face once daily in the morning * Comments:* Start Rhofade 1% to face once daily each morning.Discussed that this does not fix the symptoms of rosacea, it only masks the symptoms.Call with any problems. * L81.6 Other disorders of diminished melanin formation* Comments:* Sunscreen use and sun protection discussed. * L82.1 Other seborrheic keratosis * L81.4 Other melanin hyperpigmentation* Comments:* Sunscreen use and sun protection discussed. * Z85.828 Personal history of other malignant neoplasm of skin* Comments:* Continue to monitor for recurrence BCC's. * Z08 Encounter for follow-up examination after completed treatmen* Comments:* See above. * Follow up:* 6 months/PRN - [facility] Functional Status Description No Information Available Mental Status Description No Information Available Referrals Description No Information Available
[2021-10-02] MEDS ORDERED: LIDOCAINE 2% 100MG/5ML SDV (FOR ANES.) As Ordered ONE (08:47)
[2021-10-02] MEDS ORDERED: propofoL 200 MG/20 ML VIAL As Ordered ONE (08:49)
--- NOTE | 2021-10-02 09:27 | ROOR ---
Patient Name: Esthela Gil Procedure Date: 10/02/2021 9:04 AM Date of : 1960 Age: 61 Room: [facility] Gender: Female Note Status: Finalized Procedure: Total Colonoscopy to Cecum + ileoscopy Indications: Screening for colorectal malignant neoplasm, Last colonoscopy: 2010 Providers: Nadeem Jalloh MD Referring MD: Avtar Miles MD Requesting Provider: Medicines: Monitored Anesthesia Care Complications: No immediate complications. Procedure: Pre-Anesthesia Assessment: - The heart rate, respiratory rate, oxygen saturations, blood pressure, adequacy of pulmonary ventilation, and response to care were monitored throughout the procedure. The Colonoscope was introduced through the anus and advanced to the terminal ileum, with identification of the appendiceal orifice and IC valve. The colonoscopy was performed without difficulty. The patient tolerated the procedure well. The quality of the bowel preparation was excellent. Findings: The perianal and digital rectal examinations were normal. Non-bleeding internal hemorrhoids were found during retroflexion. The hemorrhoids were small and Grade I (internal hemorrhoids that do not prolapse). No other significant abnormalities were identified in a careful examination of the remainder of the colon. The terminal ileum appeared normal. The exam was otherwise without abnormality on direct and retroflexion views. Impression: - Non-bleeding internal hemorrhoids. - The examined portion of the ileum was normal. - The examination was otherwise normal on direct and retroflexion views. - No specimens collected. - The exam was otherwise normal to the cecum. Recommendation: - Patient has a contact number available for emergencies. The signs and symptoms of potential delayed complications were discussed with the patient. Return to normal activities tomorrow. Written discharge instructions were provided to the patient. - High fiber diet. - Discharge patient to home. - Continue present medications. - Repeat colonoscopy in 10 years for screening purposes. - Return to referring physician. - The findings and recommendations were discussed with the patient. Procedure Code(s): --- Professional --- 74361, Colonoscopy, flexible; diagnostic, including collection of specimen(s) by brushing or washing, when performed (separate procedure) Diagnosis Code(s): --- Professional --- Z12.11, Encounter for screening for malignant neoplasm of colon K64.0, First degree hemorrhoids CPT copyright 2019 [employer]. All rights reserved. The codes documented in this report are preliminary and upon medical record coder review may be revised to meet current compliance requirements. Nadeem Jalloh MD Nadeem Jalloh MD 10/02/2021 9:26:56 AM Electronically signed by Nadeem Jalloh MD Number of Addenda: 0 Note Initiated On: 10/02/2021 9:04 AM Estimated Blood Loss: Estimated blood loss: none.
[2021-10-02 09:45] VITALS: BP 136/85
== END 2021-10-02 09:52 | disposition home or self-care (01) ==
LOC: M OPP 08:12
PROVIDERS: ATTEND Internal Medicine Gastroenterology
DX: Z12.11 Encounter for screening for malignant neoplasm of colon (principal); K64.0 First degree hemorrhoids; Z79.899 Other long term (current) drug therapy